=== PATIENT | female | born 1955 | race Caucasian/White ===

== ENCOUNTER 2023-01-25 12:44 | Emergency (ER) | payer MEDICARE | END 2023-01-25 14:30 | disposition home or self-care (01) | LOC: MW.ED 12:44 | DX: T83.098A Other mechanical complication of other urinary catheter, initial encounter (principal); Z88.5 Allergy status to narcotic agent; Z88.8 Allergy status to other drugs, medicaments and biological substances; Z79.899 Other long term (current) drug therapy | CPT/HCPCS: 51702; 99283 ==

== ENCOUNTER 2023-07-13 12:17 | Emergency (ER) | payer MEDICARE | END 2023-07-13 15:29 | disposition home or self-care (01) | LOC: MW.ED 12:17 | DX: S93.601A Unspecified sprain of right foot, initial encounter (principal); Z88.5 Allergy status to narcotic agent; Z88.1 Allergy status to other antibiotic agents; X50.1XXA Overexertion from prolonged static or awkward postures, initial encounter | CPT/HCPCS: 73630-26-RT; 73630-RT; 99283 ==